=== PATIENT | male | born 1960 | race Caucasian/White ===

== ENCOUNTER → 2017-09-24 | Outpatient (CLI) | payer OTHER ==
--- NOTE | 2017-09-25 07:26 | MR ---
EXAMINATION TYPE: MR lumbar spine wo con DATE OF EXAM: 09/25/2017 COMPARISON: NONE HISTORY: LBP per order, pain into right leg and buttocks for one year per patient. TECHNIQUE: Multiplanar, multisequence imaging of the lumbar spine is performed without IV contrast. FINDINGS: Sagittal images of the lumbar spine show vertebral body heights to appear satisfactory. The re is subtle grade 1 retrolisthesis of L2 on L3 and grade 1 anterolisthesis of L4 on L5. Multilevel d isc desiccation is present. Multilevel posterior disc herniations are seen on sagittal images sparing of L3-L4 level noted. There is increased signal posteriorly consistent with annular tear L5-S1 level The conus medullaris is normal in position and signal ending at mid L1 level. The bone marrow sign al intensity is within normal limits. Mild multilevel anterior spurring is present. Axial images at the T12-L1 level shows mild facet degenerative changes and mild broad disc bulge mild ly effacing anterior thecal sac, bilateral neural foramina are patent. Axial images at L1-L2 levels show mild to moderate broad disc bulge with right paracentral disc protr usion component mildly effacing anterior thecal sac. Bilateral neural foramina are patent. Axial images at L2-L3 level show mild to moderate broad disc bulge mildly effacing anterior thecal sa c, bilateral neural foramina are mildly narrowed on sagittal images. Axial images at L3-L4 level show mild facet degenerative changes and mild broad disc bulge with right paracentral/foraminal component minimally effacing anterior thecal sac, there is mild to moderate ri ght sided neural foraminal narrowing. Left-sided neural foramen is patent. Axial images at L4-L5 level show moderate facet degenerative changes bilaterally, spondylolisthesis, and broad disc bulge causing most prominent spinal canal effacement or stenosis at this level on axia l image 9. There is mild bilateral anterior inferior neural foraminal narrowing noted. Axial images at L5-S1 level show mild facet degenerative changes bilaterally. There is central disc p rotrusion minimally effacing anterior thecal sac. Bilateral neural foramina are patent. No suspicious retroperitoneal findings are seen. 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 Most prominent spinal canal effacement or stenosis is L4-L5 level. Asymmetric increased right-sided neural foraminal narrow ing without definitive nerve encroachment is seen L3-L4 level.
== END | disposition home or self-care (01) ==
LOC: RADMRIMAIN 21:00
PROVIDERS: ATTEND Psychiatry & Neurology Neurology
DX: M48.061 Spinal stenosis, lumbar region without neurogenic claudication (principal); M99.73 Connective tissue and disc stenosis of intervertebral foramina of lumbar region; M47.816 Spondylosis without myelopathy or radiculopathy, lumbar region
CPT/HCPCS: 72148